=== PATIENT | female | born 1955 | race Caucasian/White ===

== ENCOUNTER 2020-08-09 06:45 | Day surgery (SDC) | payer MEDICARE, OTHER ==
[~2020-08-09 06:45] MED LIST: Lactated Ringers 1,000 ML IV SCH
[2020-08-09] MEDS ORDERED: fentaNYL 100 MCG/2 ML SDV ONE (06:57)
[2020-08-09] MEDS ORDERED: Propofol 200 MG/20 ML SDV ONE (06:57)
[2020-08-09] MEDS ORDERED: Ondansetron 4 MG/2 ML SDV ONE (07:35)
--- NOTE | 2020-08-09 08:20 | PCM.PREANE ---
Preanesthetic Assessment - Anesthesia/Transfusion/Family Hx Anesthesia History: Prior Anesthesia Without Reaction Family History of Anesthesia Reaction: No Transfusion History: No Prior Transfusion(s) - Review of Systems General: No Symptoms Pulmonary: No Symptoms Cardiovascular: No Symptoms Gastrointestinal: No Symptoms Neurological: No Symptoms Other: Reports: None - Physical Assessment NPO Status Date: 08/09/20 NPO Status Time: 00:05 Vital Signs: Last Vital Signs Temp 97.0 F 08/09/20 06:50 Pulse 58 L 08/09/20 06:50 Resp 16 08/09/20 06:50 BP 131/77 08/09/20 06:50 Pulse Ox 98 08/09/20 06:50 Height: 5 ft 2 in Weight: 177 lb ASA Class: 2 Mental Status: Alert & Oriented x3 Airway Class: Mallampati = 2 Dentition: Reports: Normal Dentition, Partial ROM/Head Extension: Limited/Partial Lungs: Clear to Auscultation, Normal Respiratory Effort Cardiovascular: Regular Rate, Regular Rhythm - Lab Values: Laboratory Last Values SARS-CoV-2 RNA (GERMAN) NEGATIVE (NEGATIVE) 08/09/20 06:50 - Allergies Allergies/Adverse Reactions: Allergies Allergy/AdvReac Type Severity Reaction Status Date / Time No Known Allergies Allergy Verified 08/09/20 07:20 - Anesthesia Plan Pre-Op Medication Ordered: None - Acknowledgements Anesthesia Type Planned: General Anesthesia Pt an Appropriate Candidate for the Planned Anesthesia: Yes Alternatives and Risks of Anesthesia Discussed w Pt/Guardian: Yes Pt/Guardian Understands and Agrees with Anesthesia Plan: Yes Additional Comments: npo tob abt 1/2 ppd etoh rare obesity hx depression takes no bp meds hx palpitations - faster HR that occurs abt once a month relieved with sitting no lightheadedness, dizziness, or cp with the palpitations she was evaluated for this 3 years ago no rx given recessed mandible par no questions PreAnesthesia Questionnaire HEENT History: Reports: Other (See Below) Other HEENT History: wears glasses, has bottom partial Cardiovascular History: Reports: Afib, Other (See Below) Other Cardiovascular History: states goes in and out of Afib Respiratory History: Reports: Other (See Below) Other Respiratory History: smokes 1/2 PPD for over 40 years Gastrointestinal History: Reports: None, Colon Polyp Genitourinary History: Reports: None Musculoskeletal History: Reports: None Neurological History: Reports: None Psychiatric History: Reports: Anxiety Endocrine/Metabolic History: Reports: Obesity/BMI 30+ Hematologic History: Reports: None Immunologic History: Reports: None Oncologic (Cancer) History: Reports: None Dermatologic History: Reports: None - Past Surgical History Head Surgeries/Procedures: Reports: None HEENT Surgical History: Reports: Oral Surgery, Tonsillectomy Cardiovascular Surgical History: Reports: None Respiratory Surgical History: Reports: None GI Surgical History: Reports: Colonoscopy Female Surgical History: Reports: Tubal Ligation Endocrine Surgical History: Reports: None Neurological Surgical History: Reports: None Musculoskeletal Surgical History: Reports: Arthroscopic Knee Oncologic Surgical History: Reports: None Dermatological Surgical History: Reports: None - History Comment History Comment: denies etoh - SUBSTANCE USE Tobacco Use Status *Q: Current Every Day Tobacco User Tobacco Use Within Last Twelve Months: Cigarettes - HOME MEDS Home Medications: Home Meds Calcium/Vits D3/C/K2/Minerals [Bone Essentials Capsule] 1 tab PO DAILY 02/11/16 [History] Cholecalciferol (Vitamin D3) [Vitamin D3] 1,000 unit PO DAILY 02/11/16 [History] Multivitamin [Multivitamins] 1 tab PO DAILY 02/11/16 [History] buPROPion HCL [Wellbutrin Xl] 150 mg PO BID 02/11/16 [History] Magnesium Oxide [Magnesium] 500 mg PO DAILY 08/05/20 [History] - CURRENT (IN HOUSE) MEDS Current Meds: Current Medications Lactated Ringer's (Ringers, Lactated) 1,000 mls @ 125 mls/hr IV [facility] Last Admin: 08/09/20 07:10 Dose: 125 mls/hr Documented by: Discontinued Medications Fentanyl (Fentanyl 100 Mcg/2 Ml Sdv) Confirm Administered Dose 100 mcg .ROUTE .STK-MED ONE Stop: 08/09/20 06:58 Lidocaine HCl (Lidocaine 1% 5 Ml Sdv) Confirm Administered Dose 5 ml .ROUTE .STK-MED ONE Stop: 08/09/20 06:58 Ondansetron HCl (Ondansetron 4 Mg/2 Ml Sdv) Confirm Administered Dose 4 mg .ROUTE .STK-MED ONE Stop: 08/09/20 07:36 Propofol (Propofol 200 Mg/20 Ml Sdv) Confirm Administered Dose 400 mg .ROUTE .STK-MED ONE Stop: 08/09/20 06:58
--- NOTE | 2020-08-09 09:19 | PCM.OPNOTE ---
- General Post-Op/Procedure Note Date of Surgery/Procedure: 08/09/20 Operative Procedure(s): Esophagogastroduodenoscopy with antral biopsy. Colonoscopy. Pre Op Diagnosis: Noncardiac chest pain. Change in bowel habits with rectal bleeding. Personal history of colon polyps. Post-Op Diagnosis: Mild chronic gastritis. No evidence of colonic neoplasia. Anesthesia Technique: MAC (ASA II) Primary Surgeon: Dwanye Singh Ink Technician: Francy Delarosa Condition: Good Free Text/Narrative:: DICTATION [id number] CPT CODE [id number]
--- NOTE | 2020-08-09 09:22 | PCM.POSTAN ---
POST ANESTHESIA ASSESSMENT - MENTAL STATUS Mental Status: Alert, Oriented - VITAL SIGNS Vital Signs: Last Vital Signs Temp 97.0 F 08/09/20 06:50 Pulse 58 L 08/09/20 06:50 Resp 16 08/09/20 06:50 BP 131/77 08/09/20 06:50 Pulse Ox 98 08/09/20 06:50 - RESPIRATORY Respiratory Status: Respiratory Rate WNL, Airway Patent, O2 Saturation Stable - CARDIOVASCULAR CV Status: Pulse Rate WNL, Blood Pressure Stable - GASTROINTESTINAL GI Status: No Symptoms - POST OP HYDRATION Hydration Status: Adequate & Stable
[2020-08-09] MEDS ORDERED: Lactated Ringers 1,000 ML IV SCH (09:30)
--- NOTE | 2020-08-09 09:32 | PCM48HPAN ---
Post Anesthesia Note - EVALUATION WITHIN 48HRS OF ANESTHETIC Vital Signs in Normal Range: Yes Patient Participated in Evaluation: Yes Respiratory Function Stable: Yes Airway Patent: Yes Cardiovascular Function Stable: Yes Hydration Status Stable: Yes Pain Control Satisfactory: Yes Nausea and Vomiting Control Satisfactory: Yes Mental Status Recovered: Yes Vital Signs: Last Vital Signs Temp 97.0 F 08/09/20 06:50 Pulse 57 L 08/09/20 09:21 Resp 16 08/09/20 09:21 BP 118/64 08/09/20 09:21 Pulse Ox 96 08/09/20 09:21
[2020-08-09 09:50] VITALS: BP 137/63; PULSE 63
--- NOTE | 2020-08-12 08:12 | OR ---
SURGEON: Dwayne Singh M.D. DATE OF PROCEDURE: 08/09/2020 OPERATION PERFORMED: Esophagogastroduodenoscopy with biopsy. PRIMARY SURGEON: Dwayne Singh M.D. ANESTHESIA: MAC. ASA CLASSIFICATION: II. AIX ARCHITECT: Francy BOCANEGRA student. PREOPERATIVE DIAGNOSIS: Noncardiac chest pain. POSTOPERATIVE DIAGNOSIS: Mild chronic gastritis, no significant hiatal hernia, and no esophagitis. DESCRIPTION OF PROCEDURE: The patient was taken to the endoscopy room and positioned on the endoscopy table in the left lateral decubitus position. Time-out was called for appropriate identification of the patient and procedure. Monitored anesthesia care was provided. The bite block was placed between the patient's teeth. The gastroscope was inserted through the bite block into the oropharynx and advanced without difficulty through the esophagus and stomach into the duodenum. The duodenum showed no acute inflammatory changes or ulcerations. The stomach did show mild chronic gastritis. Antral biopsies were obtained to look for the presence of Helicobacter pylori. The gastroscope was then retroflexed to visualize the proximal stomach. No significant hiatal hernia was noted. The gastroscope was then straightened and slowly withdrawn. The GE junction was well defined and showed no acute inflammatory changes. The proximal and mid esophagus demonstrated good contractility. The vocal cords were briefly visualized and no vocal cord lesions were identified. The gastroscope was then removed with the patient having tolerated the procedure well. Following colonoscopy, she was taken to recovery room in satisfactory condition. GRACIA / FRANKLYN /[id number]
--- NOTE | 2020-08-12 08:13 | OR ---
SURGEON: Dwayne Singh M.D. DATE OF PROCEDURE: 08/09/2020 OPERATION PERFORMED: Colonoscopy. PRIMARY SURGEON: Dwayne Singh M.D. TOOL HARDENER: SAHRA Carbajal, student. ANESTHESIA: MAC. ASA CLASSIFICATION: II. PREOPERATIVE DIAGNOSES: 1. Change in bowel habits with rectal bleeding. 2. History of colon polyps. 3. History of diverticulosis. DESCRIPTION OF PROCEDURE: With the patient having completed upper GI endoscopy, she was maintained in the left lateral decubitus position. The colonoscope was inserted into the rectum and advanced with minimal difficulty to the cecum. The cecum was identified by internal landmarks and external pressure. The colonoscope was retroflexed to visualize the ascending colon from below, then straightened and slowly withdrawn. The cecum, ascending colon, hepatic flexure, transverse colon, splenic flexure, descending colon, sigmoid colon, and rectum were very well visualized. No tumors or polyps were seen and there were no acute inflammatory changes. The sigmoid colon was a bit difficult to maneuver through, although I did not see any significant diverticular changes at this time. The colonoscope was withdrawn to the rectum and retroflexed to visualize the anal orifice from above. Again, no tumors or polyps were seen and there were no acute hemorrhoidal changes. The colonoscope was then straightened, the rectum aspirated, and the colonoscope removed. The patient tolerated the procedure well and was taken to recovery room in satisfactory condition. GRACIA / FRANKLYN /[id number]
== END 2020-08-09 09:48 | disposition home or self-care (01) ==
LOC: MW.SDS 06:45
PROVIDERS: ATTEND Surgery
DX: K62.5 Hemorrhage of anus and rectum (principal); R19.4 Change in bowel habit; K29.50 Unspecified chronic gastritis without bleeding; E66.9 Obesity, unspecified; I48.91 Unspecified atrial fibrillation; F17.210 Nicotine dependence, cigarettes, uncomplicated; Z01.812 Encounter for preprocedural laboratory examination; Z20.822 Contact with and (suspected) exposure to COVID-19; Z87.19 Personal history of other diseases of the digestive system; Z86.010 Personal history of colon polyps; Z79.899 Other long term (current) drug therapy; Z98.890 Other specified postprocedural states; Z68.32 Body mass index [BMI] 32.0-32.9, adult
CPT/HCPCS: 43239; 45378; J2405; J2704; J3010; J7120; U0002; 00813; 88305; 88312